=== PATIENT | female | born 1975 | race Caucasian/White ===

== ENCOUNTER 2017-12-16 12:20 | Emergency (ER) | payer OTHER ==
[~2017-12-16] VITALS: Ht 162.6 cm; Wt 92.6 kg
[2017-12-16 12:32] VITALS: BP 158/91
--- NOTE | 2017-12-16 13:05 | NUR ---
PATIENT AMBULATED TO ER BED 10
--- NOTE | 2017-12-16 13:06 | NUR ---
42/F C/O CONSTIPATION X1 WEEK; BLOOD IN STOOL, RECTAL BLEEDING X2 DAYS.DENIES N/V. SKIN IS PINK/WARM/DRY; AAOX4 WITH EVEN AND STEADY GAIT; LUNGS CLEAR BL; HR EVEN AND REGULAR; PT DENIES ANY FEVER, CP, SOB, OR COUGH AT THIS TIME; PATIENT STATES LOWER BACK PAIN OF 6/10 AT THIS TIME; PATIENT POSITIONED FOR COMFORT; HOB ELEVATED; BEDRAILS UP X2; BED DOWN. ER MD MADE AWARE OF PT STATUS.
--- NOTE | 2017-12-16 13:06 | NUR ---
Note undone in EDM - 12/16/17 at 1323 by [email or web address] 42/F C/O CONSTIPATION X1 WEEK; BLOOD IN STOOL, RECTAL BLEEDING X2 DAYS.DENIES N/V. SKIN IS PINK/WARM/DRY; AAOX4 WITH EVEN AND STEADY GAIT; LUNGS CLEAR BL; HR EVEN AND REGULAR; PT DENIES ANY FEVER, CP, SOB, OR COUGH AT THIS TIME; PATIENT STATES PAIN OF 6/10 AT THIS TIME; PATIENT POSITIONED FOR COMFORT; HOB ELEVATED; BEDRAILS UP X2; BED DOWN. ER MADE AWARE OF PT STATUS.
--- NOTE | 2017-12-16 13:35 | NUR ---
TAIWO GUALLPA ACCOMPANIED ER MD DR. PETERSEN FOR FEMALE PT RECTAL EXAM.
[2017-12-16 13:45] VITALS: BP 122/86
--- NOTE | 2017-12-16 13:45 | NUR ---
Patient discharged with v/s stable. Written and verbal after care instructions given and explained. Patient alert, oriented and verbalized understanding of instructions. Ambulatory with steady gait. All questions addressed prior to discharge. ID band removed. Patient advised to follow up with PMD. Rx of COLACE&SUDAFED given. Patient educated on indication of medication including possible reaction and side effects. Opportunity to ask questions provided and answered.
== END 2017-12-16 13:45 | disposition home or self-care (01) ==
LOC: MED 12:22
DX: K64.9 Unspecified hemorrhoids (principal); H92.01 Otalgia, right ear
CPT/HCPCS: 74022; 99284

== ENCOUNTER 2018-03-19 01:11 | Emergency (ER) | payer OTHER ==
[~2018-03-19] VITALS: Ht 165.1 cm; Wt 89.8 kg
[2018-03-19 01:17] VITALS: BP 128/87
--- NOTE | 2018-03-19 01:19 | NUR ---
PATIENT TO ER BED 11
[2018-03-19] MEDS ORDERED: ALPRAZolam 0.5 MG TAB PO SCH (01:25)
--- NOTE | 2018-03-19 01:25 | NUR ---
42/F CAME IN ED, C/O PALPITATIONS [id number], PT STATED SHE "WOKE UP FEELING LIKE MY HEART IS RACING." PT REPORTS 6/10 CHEST TIGHTNESS, NONRADIATING. REPORTS L FACE AND L SHOULDER NUMBNESS. LUNG SOUNDS CLEAR BL. AOX4, GCS 15, AMBULATORY, RR EVEN AND UNLABORED. HX DM, HLD. NKA. ER MD DR LU AT BEDSIDE TO EVALUATE PT.
[2018-03-19 01:52] LABS: BASOPHILS # (AUTO) 0.2 K/uL (0.00-0.22); BASOPHILS % (AUTO) 2.1 % (0.0-2.0); EOSINOPHILS # (AUTO) 0.2 K/uL (0-0.4); EOSINOPHILS % (AUTO) 2.5 % (0.0-4.0); HEMATOCRIT 35.9 % (36-48); HEMOGLOBIN 12.1 g/dL (12.0-16.0); LYMPHOCYTES % (AUTO) 23.7 % (20.5-51.1); MEAN CORPUSCULAR HEMOGLOBIN 29 pg (27-31); MEAN CORPUSCULAR HGB CONC 34 g/dL (33-37); MEAN CORPUSCULAR VOLUME 86.5 fL (80-94); MONOCYTES # (AUTO) 0.3 K/uL (0.8-1.0); MONOCYTES % (AUTO) 3.2 % (1.7-9.3); NEUTROPHILS # (AUTO) 5.7 K/uL (1.8-7.7); NEUTROPHILS % (AUTO) 68.5 % (42.2-75.2); PLATELET COUNT (AUTO) 342 K/uL (140-450); RED BLOOD CELL COUNT(AUTO) 4.15 MIL/uL (4.20-5.40); RED CELL DISTRIBUTION WIDTH 13.2 % (11.6-13.7); WHITE BLOOD COUNT (AUTO) 8.4 K/uL (4.8-10.8)
[2018-03-19 02:10] LABS: ALBUMIN 3.5 g/dL (3.4-5.0); ANION GAP 13.5 (8-16); ASPARTATE AMINOTRANSFERASE 21 U/L (15-37); CARBON DIOXIDE 24.9 mmol/L (21-32); CHLORIDE 105 mmol/L (98-107); CREATININE 0.8 mg/dL (0.6-1.3); GFR ARICAN-AMERICAN 101 mL/min (>90); GLUCOSE 137 mg/dL (74-106); POTASSIUM 3.4 mmol/L (3.5-5.1); SODIUM SERUM 140 mmol/L (136-145); TOTAL BILIRUBIN 0.3 mg/dL (0.0-1.0); UREA NITROGEN, BLOOD 10 mg/dL (7-18)
[2018-03-19 02:32] LABS: APPEARANCE,URINE CLEAR (CLEAR); BILIRUBIN,URINE NEGATIVE (NEGATIVE); BLOOD, URINE NEGATIVE (NEGATIVE); COLOR,URINE YELLOW (YELLOW); LEUKOCYTE ESTERASE ,URINE NEGATIVE (NEGATIVE); NITRITE, URINE NEGATIVE (NEGATIVE); UGLUCOSE NEGATIVE (NEGATIVE)
[2018-03-19 02:39] LABS: BARBITURATE, URINE NEG. ng/ml (NEG <=200); BENZODIAZEPINE, URINE NEG. ng/mL (NEG <=200); CANNABINOID, URINE NEG. ng/mL (NEG <=50); COCAINE, URINE NEG. ng/mL (NEG <=300); OPIATE, URINE NEG. ng/mL (NEG <=2000); PHENCYCLIDINE SCREEN,URINE NEG. ng/mL (NEG <=25)
[2018-03-19 02:51] LABS: RBC,URINE 0-5 (RARE) /HPF (0-5); WBC,URINE 0-5 (RARE) /HPF (0-5)
[2018-03-19 02:53] VITALS: BP 114/80
--- NOTE | 2018-03-19 02:53 | NUR ---
Patient discharged with v/s stable. Written and verbal after care instructions given and explained. Patient alert, oriented and verbalized understanding of instructions. Ambulatory with steady gait. All questions addressed prior to discharge. ID band removed. Patient advised to follow up with PMD. Rx of VISTARIL 25MG given. Patient educated on indication of medication including possible reaction and side effects. Opportunity to ask questions provided and answered.
== END 2018-03-19 02:53 | disposition home or self-care (01) ==
LOC: MED 01:11
DX: R00.2 Palpitations (principal); F41.9 Anxiety disorder, unspecified; M54.12 Radiculopathy, cervical region
CPT/HCPCS: 36415; 71045; 80053; 80305; 81001; 81025; 82550; 82948; 84484; 85025; 93005; 99285; G0482

== ENCOUNTER 2018-09-19 23:55 | Emergency (ER) | payer OTHER ==
[~2018-09-19] VITALS: Ht 162.6 cm; Wt 86.2 kg
[2018-09-20 00:10] VITALS: BP 130/86
--- NOTE | 2018-09-20 00:28 | NUR ---
Pt sent to lobby after EKG to wait for ED bed. Accompanied by mother.
--- NOTE | 2018-09-20 00:41 | NUR ---
PATIENT LEFT WITHOUT BEING SEEN BY DR. OBANDO. NO FURTHER CARE PROVIDED FOR PATIENT.
== END 2018-09-20 00:41 | disposition left against medical advice (07) ==
LOC: MED 23:55
DX: R20.0 Anesthesia of skin (principal); R07.89 Other chest pain; E11.9 Type 2 diabetes mellitus without complications; Z53.21 Procedure and treatment not carried out due to patient leaving prior to being seen by health care provider

== ENCOUNTER 2019-01-07 14:44 | Emergency (ER) | payer OTHER ==
[~2019-01-07] VITALS: Ht 162.6 cm; Wt 85.0 kg
[2019-01-07 15:02] VITALS: BP 107/86
--- NOTE | 2019-01-07 15:21 | NUR ---
PATIENT TO BED 3 AT THIS TIME.
--- NOTE | 2019-01-07 15:33 | NUR ---
PATIENT PRESENTS TO ED WITH THE CHIEF C/O COLD SYMPTOMS: FEVER AND COUGH. PT HAS BEEN COUHING SINCE A WEEK WITH PHLEGM. NO BLOOD IN PHLEGHM. DENIES N/V/D AT THIS TIME. AFEBRILE. SKIN IS PINK/WARM/DRY; AAOX4 WITH EVEN AND STEADY GAIT. LUNGS CLEAR BL; HR EVEN AND REGULAR; PT DENIES ANY FEVER, CP, SOB, OR COUGH AT THIS TIME. PATIENT STATES NECK PAIN OF 5/10 AT THIS TIME. VSS. PATIENT POSITIONED FOR COMFORT; HOB ELEVATED; BEDRAILS UP X2; BED DOWN. ER MD MADE AWARE OF PT STATUS.
[2019-01-07 16:06] VITALS: BP 131/87
--- NOTE | 2019-01-07 16:06 | NUR ---
Patient discharged with v/s stable. Written and verbal after care instructions given and explained. Patient alert, oriented and verbalized understanding of instructions. Ambulatory with steady gait. All questions addressed prior to discharge. ID band removed. Patient advised to follow up with PMD. Rx of tamiflu given. Patient educated on indication of medication including possible reaction and side effects. Opportunity to ask questions provided and answered.
== END 2019-01-07 16:06 | disposition home or self-care (01) ==
LOC: MED 14:44
DX: J11.1 Influenza due to unidentified influenza virus with other respiratory manifestations (principal); E11.9 Type 2 diabetes mellitus without complications
CPT/HCPCS: 36415; 87804; 99283

== ENCOUNTER 2019-04-19 15:58 | Emergency (ER) | payer OTHER ==
[~2019-04-19] VITALS: Ht 165.1 cm; Wt 84.4 kg
[2019-04-19 16:06] VITALS: BP 127/91
--- NOTE | 2019-04-19 16:23 | NUR ---
PT BIB W/C TO ED BED 12
[2019-04-19] MEDS ORDERED: KETOROLAC 30 MG/ML VIAL IVP ONE (16:35)
[2019-04-19] MEDS ORDERED: ONDANSETRON 4 MG/2 ML VIAL IVP ONE (16:35)
[2019-04-19] MEDS ORDERED: FAMOTIDINE 20 MG/2 ML VIAL IVP ONE (16:35)
[2019-04-19 16:55] LABS: BASOPHILS # (AUTO) 0.1 K/uL (0.00-0.22); BASOPHILS % (AUTO) 0.6 % (0.0-2.0); EOSINOPHILS # (AUTO) 0.2 K/uL (0-0.4); HEMATOCRIT 37.5 % (36-48); HEMOGLOBIN 12.7 g/dL (12.0-16.0); LYMPHOCYTES # (AUTO) 2.2 K/uL (2.5-16.5); LYMPHOCYTES % (AUTO) 22.4 % (20.5-51.1); MEAN CORPUSCULAR HEMOGLOBIN 29 pg (27-31); MEAN CORPUSCULAR HGB CONC 34 g/dL (33-37); MEAN CORPUSCULAR VOLUME 84.9 fL (80-94); MONOCYTES # (AUTO) 0.6 K/uL (0.8-1.0); MONOCYTES % (AUTO) 5.7 % (1.7-9.3); NEUTROPHILS # (AUTO) 6.8 K/uL (1.8-7.7); NEUTROPHILS % (AUTO) 69.3 % (42.2-75.2); PLATELET COUNT (AUTO) 380 K/uL (140-450); RED BLOOD CELL COUNT(AUTO) 4.41 MIL/uL (4.20-5.40); WHITE BLOOD COUNT (AUTO) 9.8 K/uL (4.8-10.8)
--- NOTE | 2019-04-19 17:01 | NUR ---
US AT BEDSIDE.
[2019-04-19 17:05] LABS: ANION GAP 13.9 (8-16); CARBON DIOXIDE 26.6 mmol/L (21-32); CREATININE 0.7 mg/dL (0.6-1.3); POTASSIUM 3.5 mmol/L (3.5-5.1)
[2019-04-19 17:11] LABS: ALBUMIN 3.8 g/dL (3.4-5.0); TOTAL BILIRUBIN 0.2 mg/dL (0.0-1.0)
--- NOTE | 2019-04-19 17:24 | NUR ---
DR KESSLER AT BEDSIDE SPEAKING W/ PT.
[2019-04-19] MEDS ORDERED: LIDOCAINE VISCOUS 2% 20 ML UDC PO ONE (17:25)
--- NOTE | 2019-04-19 18:10 | NUR ---
Patient discharged with v/s stable. Written and verbal after care instructions given and explained. Patient alert, oriented and verbalized understanding of instructions. Ambulatory with steady gait. All questions addressed prior to discharge. ID band removed. Patient advised to follow up with PMD. Rx of OMEPRAZOLE AND ZOFRAN given. Patient educated on indication of medication including possible reaction and side effects. Opportunity to ask questions provided and answered.
== END 2019-04-19 18:10 | disposition home or self-care (01) ==
LOC: MED 15:58
DX: K29.70 Gastritis, unspecified, without bleeding (principal); E11.9 Type 2 diabetes mellitus without complications; E66.9 Obesity, unspecified; Z68.31 Body mass index [BMI] 31.0-31.9, adult
CPT/HCPCS: 36415; 76705; 80053; 81002; 81025; 82948; 83690; 85025; 93005; 96374; 96375; 99284; J1885; J2405; J3490; Q0092

== ENCOUNTER 2019-06-20 15:30 | Emergency (ER) | payer OTHER ==
[~2019-06-20] VITALS: Ht 165.1 cm; Wt 91.3 kg
[2019-06-20 16:04] VITALS: BP 142/84
--- NOTE | 2019-06-20 16:29 | NUR ---
44 Y/O FEMALE VAGINAL DISCOMFORT, DENIES DISCHARGE, DENIES ODOR, INCREASED URINARY FREQUENCY, LEFT FLANK PAIN, BILAT LOWER QUADRANT ABD CRAMPING PAIN X 1 WEEK. PROGRESSIVELY GETTING WORSE. DENIES NAUSEA AND VOMITING. HX: DIABETES RX: METFORMIN BS: 114
--- NOTE | 2019-06-20 16:56 | NUR ---
LAB NOTIFIED OF URINE
[2019-06-20 17:57] LABS: APPEARANCE,URINE CLEAR (CLEAR); BILIRUBIN,URINE NEGATIVE (NEGATIVE); BLOOD, URINE NEGATIVE (NEGATIVE); COLOR,URINE YELLOW (YELLOW); LEUKOCYTE ESTERASE ,URINE NEGATIVE (NEGATIVE); NITRITE, URINE NEGATIVE (NEGATIVE); PH,URINE 6.5 (5.0-9.0); UGLUCOSE NEGATIVE (NEGATIVE)
--- NOTE | 2019-06-20 18:44 | NUR ---
Pelvic exam performed by DR KESSLER with MYSELF at bedside for entire examination. Patient tolerated procedure WELL . Patient assisted to position of comfort after examination.
--- NOTE | 2019-06-20 18:47 | NUR ---
Patient discharged with v/s stable. Written and verbal after care instructions given and explained. Patient verbalized understanding. Ambulatory with steady gait. All questions addressed prior to discharge. Advised to follow up with PMD.
[2019-06-20 18:48] VITALS: BP 142/84
[2019-06-22 06:09] LABS: CHLAMYDIA TRACHOMATIS AMP DNA Negative (Negative)
== END 2019-06-20 18:47 | disposition home or self-care (01) ==
LOC: MED 15:30
DX: N76.0 Acute vaginitis (principal); R03.0 Elevated blood-pressure reading, without diagnosis of hypertension; E11.9 Type 2 diabetes mellitus without complications; Z98.890 Other specified postprocedural states
CPT/HCPCS: 36415; 81003; 81025; 82948; 87070; 87086; 87205; 87210; 87491; 99283

== ENCOUNTER 2019-12-17 19:53 | Emergency (ER) | payer OTHER ==
[~2019-12-17] VITALS: Ht 162.6 cm; Wt 89.8 kg
[2019-12-17 19:57] VITALS: BP 133/90
--- NOTE | 2019-12-17 20:03 | NUR ---
PT AMBULATED TO BED #3
--- NOTE | 2019-12-17 20:45 | NUR ---
44/F PRESENTS TO ED, C/O SORE THROAT, X8 DAYS. REPORTS MILD DRY NONPRODUCTIVE COUGH X3 DAYS. DENIES FEVER/CHILLS. PT AWAKE AND ALERT, SKIN NORMAL COLOR WARM AND DRY, RR EVEN AND UNLABORED. LUNG SOUNDS CLEAR BL. HX DM
[2019-12-17 21:46] VITALS: BP 133/90
--- NOTE | 2019-12-17 21:46 | NUR ---
Patient discharged with v/s stable. Written and verbal after care instructions given and explained. Patient alert, oriented and verbalized understanding of instructions. Ambulatory with steady gait. All questions addressed prior to discharge. ID band removed. Patient advised to follow up with PMD. Rx of tessalon perles, cetirizine, azithromycin, and ibuprofen given. Patient educated on indication of medication including possible reaction and side effects. Opportunity to ask questions provided and answered.
== END 2019-12-17 21:46 | disposition home or self-care (01) ==
LOC: MED 19:53
DX: J02.8 Acute pharyngitis due to other specified organisms (principal); B96.89 Other specified bacterial agents as the cause of diseases classified elsewhere; E11.9 Type 2 diabetes mellitus without complications
CPT/HCPCS: 71045; 87081; 99284; Q0092

== ENCOUNTER 2020-02-05 23:45 | Emergency (ER) | payer OTHER ==
[~2020-02-05] VITALS: Ht 165.1 cm; Wt 86.2 kg
[2020-02-05 23:48] VITALS: BP_SYST 141; BP_SYST 151; BP_DIAS 111; BP_DIAS 77
[2020-02-06 00:55] LABS: BASOPHILS # (AUTO) 0.1 K/uL (0.00-0.22); BASOPHILS % (AUTO) 0.8 % (0.0-2.0); EOSINOPHILS # (AUTO) 0.2 K/uL (0-0.4); EOSINOPHILS % (AUTO) 2.7 % (0.0-4.0); HEMATOCRIT 37.9 % (36-48); HEMOGLOBIN 12.8 g/dL (12.0-16.0); LYMPHOCYTES # (AUTO) 1.9 K/uL (2.5-16.5); LYMPHOCYTES % (AUTO) 23.6 % (20.5-51.1); MEAN CORPUSCULAR HEMOGLOBIN 29 pg (27-31); MEAN CORPUSCULAR HGB CONC 34 g/dL (33-37); MEAN CORPUSCULAR VOLUME 84.3 fL (80-94); MONOCYTES # (AUTO) 0.7 K/uL (0.8-1.0); NEUTROPHILS # (AUTO) 5.3 K/uL (1.8-7.7); NEUTROPHILS % (AUTO) 64.9 % (42.2-75.2); PLATELET COUNT (AUTO) 391 K/uL (140-450); RED CELL DISTRIBUTION WIDTH 14.2 % (11.6-13.7); WHITE BLOOD COUNT (AUTO) 8.2 K/uL (4.8-10.8)
[2020-02-06 01:13] LABS: ALBUMIN 3.8 g/dL (3.4-5.0); ANION GAP 12.7 (8-16); CARBON DIOXIDE 28.1 mmol/L (21-32); CREATININE 0.8 mg/dL (0.6-1.3); POTASSIUM 3.8 mmol/L (3.5-5.1); TOTAL BILIRUBIN 0.2 mg/dL (0.0-1.0)
[2020-02-06 01:20] LABS: CREATINE KINASE MB 0.8 ng/mL (0-3.6)
[2020-02-06 01:24] LABS: BARBITURATE, URINE NEGATIVE ng/ml (NEG <=200); BENZODIAZEPINE, URINE NEGATIVE ng/mL (NEG <=200); CANNABINOID, URINE NEGATIVE ng/mL (NEG <=50); COCAINE, URINE NEGATIVE ng/mL (NEG <=300); OPIATE, URINE NEGATIVE ng/mL (NEG <=2000); PHENCYCLIDINE SCREEN,URINE NEGATIVE ng/mL (NEG <=25)
[2020-02-06 01:57] VITALS: BP 138/76
== END 2020-02-06 01:57 | disposition home or self-care (01) ==
LOC: MED 23:45
DX: F41.9 Anxiety disorder, unspecified (principal); E78.2 Mixed hyperlipidemia; R03.0 Elevated blood-pressure reading, without diagnosis of hypertension; E11.9 Type 2 diabetes mellitus without complications; Z79.84 Long term (current) use of oral hypoglycemic drugs
CPT/HCPCS: 36415; 71045; 80053; 80061; 80305; 81002; 81025; 82550; 82553; 83880; 84443; 84484; 85025; 85379; 93005; 99285; Q0092